=== PATIENT | female | born 1950 ===

== ENCOUNTER 2024-10-30 06:04 | Day surgery (SDC) | payer MEDICARE, SELFPAY ==
[2024-10-16 14:06] VITALS: BMI 35.2
--- NOTE | 2024-10-17 15:28 | PTCARENOTE ---
Abnormal EKG reviewed by Dr Fischer, no further action requested.
[2024-10-30] VITALS (9 sets, daily range): BP systolic 108–142; BP diastolic 59–95; BMI 35.2
[2024-10-30] MEDS: HEPARIN 5000 UNITS SC (07:22)
[2024-10-30] MEDS: TYLENOL 1000 MG PO (07:22)
[2024-10-30] MEDS: NEURONTIN 300 MG PO (07:22)
[2024-10-30] MEDS: EMEND 40 MG PO (07:22)
[2024-10-30] MEDS: NORMOSOL-R/PLASMALYTE-A 1000 IV (07:23)
[2024-10-30] MEDS: DILAUDID 0.25 MG IV ×3 (09:13→09:37)
--- NOTE | 2024-10-30 09:13 | OR.RPT ---
Operative Report
Operative Report
DATE OF OPERATION: October 30, 2024
PREOPERATIVE DIAGNOSIS: Thyroid Goiter - E040
POSTOPERATIVE DIAGNOSIS: Same
SURGEON: Vinod Sofia M.D.
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
ANESTHESIA: GET
ESTIMATED BLOOD LOSS: 10 cc
DRAINS: None
SPECIMEN: Left substernal goiter and isthmus
FINDINGS:
COMPLICATIONS: None
PROCEDURE:
The patient was taken to the operating room and placed in the usual supine position. After adequate general endotracheal anesthesia was established, the patient�s neck was extended, prepped, and draped in the typical sterile fashion. A 6 cm old
transcervical incision was reopened. The skin incision was made with the #15 blade, which was taken through the skin into the subcutaneous tissue. The underlying platysma muscle was divided, and subplatysmal flaps were created superiorly to the
thyroid cartilage and inferiorly to the sternal notch. Strap muscles were identified and at the midline.
Attention was turned to the patient�s left thyroid lobe. The left thyroid lobe was mobilized medially. During this process, the left middle thyroid vein and inferior thyroid artery were dissected and ligated with Ligasure. There was a substernal
extension, which was delivered out of the mediastinum through the cervical incision. Next, the left superior pole was taken down by dissecting and transecting the superior pole vessels with a Ligasure. The left thyroid lobe was mobilized medially.
The left recurrent laryngeal nerve was identified and preserved throughout its entire course. The left inferior parathyroid gland was identified and preserved. The left thyroid lobe with isthmus was resected from the trachea and sent to the
pathology department.
After obtaining adequate hemostasis, the strap muscle was approximated with #3-0 Vicryl in a running fashion, and the platysma muscles were reapproximated with #3-0 Vicryl in an interrupted fashion, and the skin was approximated with #4-0 Monocryl
in a running subcuticular fashion. Steri-strips and sterile dressings were placed. The patient tolerated the procedure well. The final instrument, needle, and sponge counts were correct.
[2024-10-30] MEDS: ROXICODONE 5 MG PO (10:13)
== END 2024-10-30 11:23 | disposition home or self-care (01) ==
LOC: SDS 06:04
PROVIDERS: ATTENDING PHYSICIAN Surgery; FAMILY PHYSICIAN Family Medicine
DX: D34 Benign neoplasm of thyroid gland (principal); E06.3 Autoimmune thyroiditis; E04.0 Nontoxic diffuse goiter
CPT/HCPCS: 60220; 88305; 88307